=== PATIENT | male | born 1975 | race Caucasian/White ===

== ENCOUNTER 2025-02-25 16:42 | Inpatient (IN) | payer BC ==
[~2025-02-25] VITALS: Ht 182.9 cm; Wt 84.5 kg
[2025-02-25 17:12] LABS: VENOUS BASE EXCESS -26.1 (-2.0-2.0); VENOUS HCO3 4.2 MMOL/L (23.0-27.0); VENOUS O2 SATURATION 83.2 % (60.0-80.0); VENOUS PARTIAL PRESSURE CO2 18.3 mmHg (38.0-50.0); VENOUS PARTIAL PRESSURE O2 54.8 mmHg (30.0-50.0); VENOUS PH 6.976 UNITS (7.330-7.430); VENOUS STANDARD HCO3 7.3 MMOL/L; VENOUS TOTAL CO2 4.7 MMOL/L (24.0-28.0)
[2025-02-25 17:18] LABS: KETONE, URINE AUTO RFX 2+ mg/dL (NEGATIVE); LEUKOCYTE ESTERASE UR AUTO RFX NEGATIVE (NEGATIVE); MUCUS, URINE RFX SMALL (NEGATIVE); NITRITE, URINE AUTO RFX NEGATIVE (NEGATIVE); RBC, URINE AUTO RFX 0 /HPF (0-3); SQUAM EPITHELIAL CELL UR AURFX 0 /HPF (0-6); WBC, URINE AUTO RFX 1 /HPF (0-3)
[2025-02-25] MEDS: NS (Normal Saline) 0.9% 1,000 ML IV ONE ×3 (17:23→20:48)
[2025-02-25] MEDS: HumuLIN R (REGULAR) INSULIN (NovoLIN R) **100 U/ML** PER UNIT IV ONE (17:30)
[2025-02-25 17:34] LABS: OSMOLALITY SERUM 363 MOSM/KG (275-295)
[2025-02-25] MEDS: INSULIN REGULAR IN 0.9 % NACL 100 UNIT in IV 1 EA IV SCH ×2 (17:34→18:40)
[2025-02-25 17:51] LABS: BASO # 0.2 10^3/uL (0.0-0.2); BASO % 0.5 % (0.0-1.0); EOS # 0.0 10^3/uL (0.0-0.5); EOS % 0.0 % (0.0-3.0); LYMPH # 1.4 10^3/uL (1.5-5.0); LYMPH % 3.5 % (24.0-44.0); MONO % 8.0 % (2.0-8.0); NEUTROPHILS # 34.7 10^3/uL (1.5-8.5); NEUTROPHILS % 85.3 % (36.0-66.0); PLATELET COUNT, AUTOMATED 798 10^3/uL (150-450)
[2025-02-25 17:55] LABS: ACETONE/KETONE > 4.50 MMOL/L (0.02-0.27); ALT/SGPT 15 U/L (7.0-40); AST/SGOT 23 U/L (<34); CALCIUM LEVEL 10.4 MG/DL (8.5-10.1); CARBON DIOXIDE LEVEL < 10.0 MMOL/L (20-31); CHLORIDE LEVEL 98 MMOL/L (98-107); CREATININE FOR GFR 1.43 MG/DL (0.70-1.30); GLOMERULAR FILTRATION RATE 60.8 (>60); POTASSIUM SERUM 6.9 MMOL/L (3.5-5.1); SODIUM LEVEL 132 MMOL/L (136-145)
[2025-02-25] MEDS ORDERED: INSULIN IV RATE CHANGE DOCUMENTATION ML/HR XX SCH (18:05)
[2025-02-25 18:10] LABS: MONO # 3.2 10^3/uL (0.0-0.8)
[2025-02-25] MEDS ORDERED: TOUJ300I2 SUBQ (18:21)
[2025-02-25] MEDS ORDERED: HUMA50IN4 SUBQ (18:21)
[2025-02-25] MEDS ORDERED: LEVO200T4 PO (18:21)
[2025-02-25] MEDS ORDERED: GLUC1VIA14 SUBQ (18:21)
[2025-02-25] MEDS ORDERED: HOME MED LIST COMPLETE! XX SCH (18:25)
[2025-02-25 18:38] LABS: ESTIMATED AVERAGE GLUCOSE 292.0 MG/DL (60-110)
[2025-02-25] MEDS ORDERED: LIDOCAINE 1% MDV 20 ML VIAL As Ordered ONE (19:06)
[2025-02-25 19:07] LABS: ESTIMATED AVERAGE GLUCOSE 295.0 MG/DL (60-110)
[2025-02-25] MEDS: SODIUM BICARBONATE 8.4% INJ 50ML SYRINGE IV STA (19:07)
[2025-02-25 19:08] LABS: AMPHETAMINES LEVEL URINE NEGATIVE (NEGATIVE); BARBITURATES URINE NEGATIVE (NEGATIVE); BENZODIAZEPINES URINE NEGATIVE (NEGATIVE); CANNABINOIDS URINE NEGATIVE (NEGATIVE); COCAINE METABOLITE URINE NEGATIVE (NEGATIVE); METHADONE URINE NEGATIVE (NEGATIVE); PHENCYCLIDINE URINE NEGATIVE (NEGATIVE)
[2025-02-25] MEDS ORDERED: LIDOCAINE W/EPINEPHrine 1% 20 ML VIAL As Ordered ONE (19:08)
[2025-02-25 19:11] LABS: OPIATES URINE POSITIVE (NEGATIVE)
[2025-02-25 19:14] LABS: FREE T4 1.0 NG/DL (0.89-1.76)
[2025-02-25] MEDS: LIDOCAINE W/EPINEPHrine 1% 20 ML VIAL SC ONE (19:30)
[2025-02-25] MEDS: CALCIUM CHLORIDE 10% 1 GM in D5W 100 ML IV SCH (19:30)
[2025-02-25] MEDS: LanTUS (INSULIN GLARGINE INJ) 1 UNITS/0.01 ML SC ONE (19:53)
[2025-02-25 20:25] VITALS: BP 138/85; TEMP 97.6; O2SAT 99
[2025-02-25] MEDS: PIPERACILLIN/TAZOBACTAM SOD 3.375 GM in DEXTROSE 5% (D5W) ADV/MINI-BAG 50 ML IV SCH (21:29)
[2025-02-25] MEDS: PANTOPRAZOLE 40MG VIAL IV SCH (21:35)
[2025-02-25] MEDS: LINEZOLID 600 MG in IV 1 EA IV SCH (21:35)
[2025-02-25 22:00] VITALS: BP 140/82; O2SAT 99
[2025-02-25] MEDS: HEPARIN SOD 5000 UNITS/ML 1 ML VIAL/SYRINGE SC SCH (22:49)
[2025-02-25 23:00] VITALS: BP 136/79; O2SAT 98
[2025-02-25 23:12] LABS: CALCIUM LEVEL 10.6 MG/DL (8.5-10.1); CARBON DIOXIDE LEVEL 11.0 MMOL/L (20-31); CHLORIDE LEVEL 111.0 MMOL/L (98-107); CREATININE FOR GFR 1.18 MG/DL (0.70-1.30); GLOMERULAR FILTRATION RATE 76.6 (>60); POTASSIUM SERUM 4.5 MMOL/L (3.5-5.1); SODIUM LEVEL 144.0 MMOL/L (136-145)
[2025-02-26] VITALS (16 sets, daily range): BP systolic 100–146; BP diastolic 56–79; TEMP 97.5–98.9; O2SAT 95–100
[2025-02-26 01:42] LABS: CALCIUM LEVEL 10.0 MG/DL (8.5-10.1); CARBON DIOXIDE LEVEL 14 MMOL/L (20-31); CHLORIDE LEVEL 113 MMOL/L (98-107); CREATININE FOR GFR 0.96 MG/DL (0.70-1.30); GLOMERULAR FILTRATION RATE > 90.0 (>60); PHOSPHORUS LEVEL 1.1 MG/DL (2.5-4.9); POTASSIUM SERUM 4.5 MMOL/L (3.5-5.1); SODIUM LEVEL 144 MMOL/L (136-145)
[2025-02-26] MEDS: LR 1,000 ML IV SCH (03:19)
[2025-02-26] MEDS: SODIUM PHOSPHATE INJ 30 MMOL in D5W 500 ML IV ONE (03:19)
[2025-02-26 05:40] LABS: BASO # 0.1 10^3/uL (0.0-0.2); BASO % 0.2 % (0.0-1.0); EOS # 0.0 10^3/uL (0.0-0.5); EOS % 0.0 % (0.0-3.0); LYMPH # 1.4 10^3/uL (1.5-5.0); LYMPH % 5.1 % (24.0-44.0); MONO # 2.3 10^3/uL (0.0-0.8); MONO % 8.0 % (2.0-8.0); NEUTROPHILS # 24.2 10^3/uL (1.5-8.5); NEUTROPHILS % 85.7 % (36.0-66.0)
[2025-02-26 05:47] LABS: PLATELET COUNT, AUTOMATED 613 10^3/uL (150-450)
[2025-02-26 06:23] LABS: ALT/SGPT 11 U/L (7.0-40); AST/SGOT 14 U/L (<34); CALCIUM LEVEL 9.8 MG/DL (8.5-10.1); CARBON DIOXIDE LEVEL 17 MMOL/L (20-31); CHLORIDE LEVEL 115 MMOL/L (98-107); CREATININE FOR GFR 0.87 MG/DL (0.70-1.30); GLOMERULAR FILTRATION RATE > 90.0 (>60); MAGNESIUM LEVEL 2.2 MG/DL (1.8-2.4); PHOSPHORUS LEVEL 2.3 MG/DL (2.5-4.9); POTASSIUM SERUM 4.0 MMOL/L (3.5-5.1); SODIUM LEVEL 146 MMOL/L (136-145)
[2025-02-26] MEDS: POTASSIUM PHOSPHATE INJ 30 MMOL in D5W 500 ML IV ONE (07:58)
[2025-02-26] MEDS: INSULIN IV RATE CHANGE DOCUMENTATION ML/HR XX SCH (08:04)
[2025-02-26] MEDS: ONDANSETRON 4MG 2ML VIAL IV PRN (08:05)
[2025-02-26] MEDS ORDERED: LanTUS (INSULIN GLARGINE INJ) 1 UNITS/0.01 ML SC SCH (09:00)
[2025-02-26] MEDS: LEVOTHYROXINE 100 MCG TABLET (0.1 MG) PO SCH (09:58)
[2025-02-26] MEDS: D5W/LR 1,000 ML IV SCH (09:59)
[2025-02-26] MEDS: LanTUS (INSULIN GLARGINE INJ) 1 UNITS/0.01 ML SC SCH (09:59)
[2025-02-26] MEDS ORDERED: INSULIN LISPRO (NovoLOG) PER UNIT SC SCH ×2 (12:00→21:00)
[2025-02-26] MEDS: VANCOMYCIN HCL 1,500 MG, VIAL MATE ADAPTER 1 EACH in NS 500 ML IV ONE (12:04)
[2025-02-26 12:25] LABS: CALCIUM LEVEL 9.3 MG/DL (8.5-10.1); CARBON DIOXIDE LEVEL 20 MMOL/L (20-31); CHLORIDE LEVEL 113 MMOL/L (98-107); CREATININE FOR GFR 0.82 MG/DL (0.70-1.30); GLOMERULAR FILTRATION RATE > 90.0 (>60); PHOSPHORUS LEVEL 3.3 MG/DL (2.5-4.9); POTASSIUM SERUM 3.8 MMOL/L (3.5-5.1); SODIUM LEVEL 146 MMOL/L (136-145)
[2025-02-26] MEDS ORDERED: GLUCOSE 4 GM CHEW PO PRN (12:55)
[2025-02-26] MEDS ORDERED: GLUCAGON INJ 1 MG VIAL SC PRN (12:55)
[2025-02-26] MEDS: INSULIN LISPRO (NovoLOG) PER UNIT SC SCH ×2 (13:50→20:05)
[2025-02-26] MEDS: VANCOMYCIN HCL 1,000 MG, VIAL MATE ADAPTER 1 EACH in NS 250 ML IV SCH (16:56)
[2025-02-26] MEDS: NS (Normal Saline) 0.9% 1,000 ML IV SCH (16:56)
[2025-02-26 17:25] LABS: C REACTIVE PROTEIN QUANTITATIV 21.40 MG/DL (<1.0)
[2025-02-26] MEDS: PERCOCET 5MG/325MG TAB PO PRN (20:07)
[2025-02-26 22:02] LABS: CALCIUM LEVEL 8.7 MG/DL (8.5-10.1); CARBON DIOXIDE LEVEL 20 MMOL/L (20-31); CHLORIDE LEVEL 116 MMOL/L (98-107); CREATININE FOR GFR 0.76 MG/DL (0.70-1.30); GLOMERULAR FILTRATION RATE > 90.0 (>60); POTASSIUM SERUM 4.0 MMOL/L (3.5-5.1); SODIUM LEVEL 141 MMOL/L (136-145)
[2025-02-27] VITALS: BP 115/61; TEMP 98.4; O2SAT 99
[2025-02-27 04:00] VITALS: BP 147/77; TEMP 98.6; O2SAT 98
[2025-02-27 05:10] LABS: PLATELET COUNT, AUTOMATED 488 10^3/uL (150-450)
[2025-02-27 05:27] LABS: CALCIUM LEVEL 8.4 MG/DL (8.5-10.1); CARBON DIOXIDE LEVEL 22 MMOL/L (20-31); CHLORIDE LEVEL 118 MMOL/L (98-107); CREATININE FOR GFR 0.74 MG/DL (0.70-1.30); GLOMERULAR FILTRATION RATE > 90.0 (>60); POTASSIUM SERUM 3.7 MMOL/L (3.5-5.1); SODIUM LEVEL 145 MMOL/L (136-145)
[2025-02-27] MEDS: DEXTROSE 50% 50 ML SYRINGE IV PRN (05:43)
[2025-02-27 08:18] VITALS: BP 147/73; TEMP 97.9; O2SAT 99
[2025-02-27] MEDS: SUCRALFATE SUSP 1GM/10ML UD PO SCH (08:56)
[2025-02-27] MEDS: LanTUS (INSULIN GLARGINE INJ) 1 UNITS/0.01 ML SC SCH (08:57)
[2025-02-27 12:29] VITALS: BP 121/63; TEMP 98.4; O2SAT 98
[2025-02-27 15:54] VITALS: BP 136/71; TEMP 98.2; O2SAT 98
[2025-02-27] MEDS: MORPHINE 4 MG/ML 1 ML VIAL IV PRN (16:27)
[2025-02-27 20:00] VITALS: BP 140/85; TEMP 98; O2SAT 98
[2025-02-28] VITALS (15 sets, daily range): BP systolic 122–166; BP diastolic 69–90; TEMP 97.8–98.7; O2SAT 95–100
[2025-02-28 05:09] LABS: PLATELET COUNT, AUTOMATED 432 10^3/uL (150-450)
[2025-02-28 05:35] LABS: CALCIUM LEVEL 8.0 MG/DL (8.5-10.1); CARBON DIOXIDE LEVEL 28 MMOL/L (20-31); CHLORIDE LEVEL 108 MMOL/L (98-107); CREATININE FOR GFR 0.57 MG/DL (0.70-1.30); GLOMERULAR FILTRATION RATE > 90.0 (>60); POTASSIUM SERUM 3.4 MMOL/L (3.5-5.1); SODIUM LEVEL 142 MMOL/L (136-145)
[2025-02-28] MEDS: POTASSIUM CHLORIDE 10MEQ SR TABLET PO ONE (07:29)
[2025-02-28] MEDS: VANCOMYCIN HCL 1,250 MG, VIAL MATE ADAPTER 1 EACH in NS 250 ML IV SCH (12:02)
[2025-02-28] MEDS ORDERED: MIDAZOLAM INJ 2 MG/2 ML VIAL As Ordered ONE (12:49)
[2025-02-28] MEDS ORDERED: ROCURONIUM BROMIDE 50MG/5ML VIAL As Ordered ONE (12:49)
[2025-02-28] MEDS ORDERED: SUGAMMADEX SODIUM 200 MG/2 ML VIAL As Ordered ONE (12:49)
[2025-02-28] MEDS ORDERED: ACETAMINOPHEN 1000MG/100ML IV BAG As Ordered ONE (12:49)
[2025-02-28] MEDS ORDERED: dexAMETHasone 4 MG/ML 1 ML VIAL As Ordered ONE (12:49)
[2025-02-28] MEDS ORDERED: KETOROLAC 30 MG/ML 1 ML VIAL As Ordered ONE (12:49)
[2025-02-28] MEDS ORDERED: ONDANSETRON 4MG 2ML VIAL As Ordered ONE (12:49)
[2025-02-28] MEDS ORDERED: LIDOCAINE 2% 100 MG/5 ML SDV (FOR ANES.) As Ordered ONE (12:49)
[2025-02-28] MEDS ORDERED: HYDROmorphone HCL 2 MG/ML 1 ML VIAL As Ordered ONE (14:44)
[2025-02-28] MEDS: LIDOCAINE 1% SDV 30 ML VIAL As Ordered ONE (14:50)
[2025-02-28] MEDS ORDERED: ONDANSETRON 4MG 2ML VIAL IV PRN (15:30)
[2025-02-28] MEDS ORDERED: HYDROMORPHONE HCL 0.5 MG/0.5 ML SYRINGE IV PRN (15:30)
[2025-02-28] MEDS ORDERED: MEPERIDINE 25 MG/ML 1 ML VIAL IV PRN (15:35)
[2025-02-28] MEDS: LR 1,000 ML IV SCH (16:39)
[2025-02-28] MEDS: LanTUS (INSULIN GLARGINE INJ) 1 UNITS/0.01 ML SC SCH (20:18)
[2025-03-01] VITALS (9 sets, daily range): BP systolic 117–169; BP diastolic 58–91; TEMP 97.4–98.8; O2SAT 96–100
[2025-03-01 04:37] LABS: PLATELET COUNT, AUTOMATED 426 10^3/uL (150-450)
[2025-03-01 05:05] LABS: C REACTIVE PROTEIN QUANTITATIV 4.18 MG/DL (<1.0); CALCIUM LEVEL 7.7 MG/DL (8.5-10.1); CARBON DIOXIDE LEVEL 30 MMOL/L (20-31); CHLORIDE LEVEL 106 MMOL/L (98-107); CREATININE FOR GFR 0.68 MG/DL (0.70-1.30); GLOMERULAR FILTRATION RATE > 90.0 (>60); POTASSIUM SERUM 3.9 MMOL/L (3.5-5.1); SODIUM LEVEL 141 MMOL/L (136-145)
[2025-03-01] MEDS ORDERED: MIRALAX *UNIT DOSE* 17 GM PACKET PO PRN (07:30)
[2025-03-01] MEDS: SENNOSIDES/DOCUSATE SODIUM 8.6 MG/50MG TAB PO SCH (08:20)
[2025-03-01 09:17] LABS: CPK CREATINE PHOSPHOKINASE 44 U/L (46-171)
[2025-03-01] MEDS: MOM 30 ML SUSPENSION UDC PO PRN (11:09)
[2025-03-01] MEDS: PERCOCET 5MG/325MG TAB PO PRN (11:09)
[2025-03-01] MEDS: SODIUM CHLORIDE 0.9% INJ 10 ML SYR IV SCH (15:34)
[2025-03-01] MEDS: DAPTOmycin 800 MG in NS 50 ML IV SCH (15:34)
[2025-03-02] VITALS: BP 154/80; TEMP 98; O2SAT 98
[2025-03-02] MEDS: PERCOCET 5MG/325MG TAB PO PRN (03:07)
[2025-03-02 03:19] VITALS: BP 145/82; TEMP 97.2; O2SAT 97
[2025-03-02 06:51] LABS: PLATELET COUNT, AUTOMATED 429 10^3/uL (150-450)
[2025-03-02 07:13] VITALS: BP 160/82; TEMP 98.1; O2SAT 98
[2025-03-02 07:17] LABS: CALCIUM LEVEL 7.9 MG/DL (8.5-10.1); CARBON DIOXIDE LEVEL 31 MMOL/L (20-31); CHLORIDE LEVEL 104 MMOL/L (98-107); CREATININE FOR GFR 0.70 MG/DL (0.70-1.30); GLOMERULAR FILTRATION RATE > 90.0 (>60); POTASSIUM SERUM 3.6 MMOL/L (3.5-5.1); SODIUM LEVEL 140 MMOL/L (136-145)
[2025-03-02 12:00] VITALS: BP 158/86; TEMP 98.3; O2SAT 97
[2025-03-02 15:34] VITALS: BP 150/78; TEMP 98.6; O2SAT 96
[2025-03-02] MEDS: INSULIN LISPRO (NovoLOG) PER UNIT SC SCH ×2 (18:51)
[2025-03-02 19:48] VITALS: BP 134/75; TEMP 97.3; O2SAT 94
[2025-03-02] MEDS: LanTUS (INSULIN GLARGINE INJ) 1 UNITS/0.01 ML SC SCH (20:39)
[2025-03-03 03:31] VITALS: BP 144/89; TEMP 97.5; O2SAT 94
[2025-03-03 11:38] VITALS: BP 157/67; TEMP 96.8; O2SAT 95
[2025-03-03 14:05] LABS: BASO # 0.1 10^3/uL (0.0-0.2); BASO % 0.4 % (0.0-1.0); EOS # 0.2 10^3/uL (0.0-0.5); EOS % 1.5 % (0.0-3.0); LYMPH # 2.6 10^3/uL (1.5-5.0); LYMPH % 18.2 % (24.0-44.0); MONO # 1.0 10^3/uL (0.0-0.8); MONO % 7.2 % (2.0-8.0); NEUTROPHILS # 10.3 10^3/uL (1.5-8.5); NEUTROPHILS % 72.1 % (36.0-66.0); PLATELET COUNT, AUTOMATED 468 10^3/uL (150-450)
[2025-03-03 14:19] LABS: C REACTIVE PROTEIN QUANTITATIV 1.77 MG/DL (<1.0); CPK CREATINE PHOSPHOKINASE 56.0 U/L (46-171)
[2025-03-03] MEDS: INSULIN LISPRO (NovoLOG) PER UNIT SC SCH (18:05)
[2025-03-03] MEDS: LanTUS (INSULIN GLARGINE INJ) 1 UNITS/0.01 ML SC SCH (21:29)
[2025-03-04 03:53] VITALS: BP 154/80; TEMP 97.9; O2SAT 96
[2025-03-04 12:12] VITALS: BP 133/83; TEMP 97.2; O2SAT 96
[2025-03-04 20:06] VITALS: BP 140/86; TEMP 98; O2SAT 97
[2025-03-05 04:08] VITALS: BP 141/79; TEMP 97.5; O2SAT 96
[2025-03-05] MEDS: PANTOPRAZOLE 40MG TAB PO SCH (09:26)
[2025-03-05] MEDS: ACETAMINOPHEN 325 MG TAB PO PRN (11:10)
[2025-03-06 04:04] VITALS: BP 129/79; TEMP 97.7; O2SAT 96
[2025-03-06] MEDS: SODIUM CHLORIDE 0.9% INJ 10 ML SYR IV PRN (06:53)
[2025-03-06] MEDS ORDERED: TOUJ300I2 SUBQ (10:13)
[2025-03-06] MEDS ORDERED: HUMA50IN4 SUBQ (10:13)
[2025-03-06] MEDS ORDERED: METR-265 PO (10:13)
[2025-03-06] MEDS ORDERED: PANT40TA29 PO (10:13)
[2025-03-06] MEDS ORDERED: MIRA33506 PO (10:13)
[2025-03-06] MEDS ORDERED: OXYC-517 PO (10:13)
[2025-03-06] MEDS: INSULIN LISPRO (NovoLOG) PER UNIT SC SCH (13:42)
[2025-03-06] MEDS: FLUZONE VACCINE TRI PF(25-26) 0.5ML SYRINGE IM.IMMUN ONE (14:46)
[2025-03-06] MEDS ORDERED: LanTUS (INSULIN GLARGINE INJ) 1 UNITS/0.01 ML SC SCH (21:00)
== END 2025-03-06 14:52 | disposition home health service (06) | DRG 720 ==
LOC: EDBD 16:42 → M ED 16:42 → EEVIPCON 18:18 → M ED INP 18:18 → M ICU 20:20 → M PCU 03-02 03:14 → M MSPAV 03-03 03:14
PROVIDERS: ADMIT Internal Medicine; ATTEND Internal Medicine
PROC: 0Y913ZZ Drainage of Left Buttock, Percutaneous Approach (ICD-10-PCS; 2025-02-25)
PROC: B246ZZZ Ultrasonography of Right and Left Heart (ICD-10-PCS; principal; 2025-02-26)
PROC: 0JBR0ZZ Excision of Left Foot Subcutaneous Tissue and Fascia, Open Approach (ICD-10-PCS; 2025-02-26)
DX: A41.02 Sepsis due to Methicillin resistant Staphylococcus aureus (principal); E10.10 Type 1 diabetes mellitus with ketoacidosis without coma; N17.9 Acute kidney failure, unspecified; E10.621 Type 1 diabetes mellitus with foot ulcer; E83.39 Other disorders of phosphorus metabolism; E87.0 Hyperosmolality and hypernatremia; L97.529 Non-pressure chronic ulcer of other part of left foot with unspecified severity; E03.9 Hypothyroidism, unspecified; K21.9 Gastro-esophageal reflux disease without esophagitis; K61.1 Rectal abscess; R33.9 Retention of urine, unspecified; B95.1 Streptococcus, group B, as the cause of diseases classified elsewhere; E86.0 Dehydration; Z79.4 Long term (current) use of insulin; Z79.890 Hormone replacement therapy; E87.6 Hypokalemia